=== PATIENT | male | born 1930 | race Caucasian/White ===

== ENCOUNTER 2022-01-01 13:16 | Outpatient (CLI) | payer MEDICARE, BC | END 2022-01-01 13:17 | disposition home or self-care (01) | LOC: BICRAD 13:16 | PROVIDERS: ATTEND Dentist Oral and Maxillofacial Surgery | DX: Z03.89 Encounter for observation for other suspected diseases and conditions ruled out (principal); R91.8 Other nonspecific abnormal finding of lung field | CPT/HCPCS: 71045; 74018 ==

== ENCOUNTER 2022-01-08 11:03 | Outpatient (CLI) | payer MEDICARE, BC | END 2022-01-08 11:04 | disposition home or self-care (01) | LOC: RAD 11:03 | PROVIDERS: ATTEND Physician Assistant Medical | DX: T18.9XXA Foreign body of alimentary tract, part unspecified, initial encounter (principal) | CPT/HCPCS: 74018 ==

== ENCOUNTER 2022-01-16 09:43 | Outpatient (CLI) | payer MEDICARE, BC | END 2022-01-16 09:44 | disposition home or self-care (01) | LOC: BICRAD 09:43 | PROVIDERS: ATTEND Internal Medicine Gastroenterology | DX: T18.9XXA Foreign body of alimentary tract, part unspecified, initial encounter (principal) | CPT/HCPCS: 74018 ==